=== PATIENT | female | born 1975 | race Two or more races ===

== ENCOUNTER 2020-10-09 11:18 | Emergency (ER) | payer OTHER ==
[~2020-10-09] VITALS: Ht 170.2 cm; Wt 99.8 kg
[2020-10-09] MEDS ORDERED: PRINIVIL20 MG (11:40)
== END 2020-10-09 15:50 | disposition home or self-care (01) ==
LOC: ER 11:18
DX: S93.492A Sprain of other ligament of left ankle, initial encounter (principal); W01.0XXA Fall on same level from slipping, tripping and stumbling without subsequent striking against object, initial encounter; Y93.89 Activity, other specified; Y92.59 Other trade areas as the place of occurrence of the external cause; Y99.8 Other external cause status